=== PATIENT | female | born 1955 | race American Indian/Alaskan Native ===

== ENCOUNTER 2017-03-07 15:42 | Outpatient (CLI) | payer BC ==
--- NOTE | 2017-03-07 16:33 | Mammography Report ---
BILATERAL DIGITAL SCREENING MAMMOGRAM with CAD: 03/07/17 15:42:00 CLINICAL: Routine screening. COMPARISON:01/23/16 FINDINGS: The breasts are predominantly fatty with a few bilateral scattered fibroglandular densities. No mass, architectural distortion or suspicious calcifications. IMPRESSION: No mammographic evidence of malignancy. BI-RADS CATEGORY: 2 -- Benign RECOMMENDATION: Routine mammographic screening in one year. COMMENT: Patient follow-up letters are generated by our [employer] application.
== END 2017-03-07 15:43 | disposition home or self-care (01) ==
LOC: SPVWC 15:42
PROVIDERS: ATTEND Nurse Practitioner
DX: Z12.31 Encounter for screening mammogram for malignant neoplasm of breast (principal)
CPT/HCPCS: 77067; G0202

== ENCOUNTER 2019-02-19 13:42 | Outpatient (CLI) | payer OTHER ==
--- NOTE | 2019-02-19 15:40 | Mammography Report ---
BILATERAL DIGITAL SCREENING MAMMOGRAM with CAD: 02/19/19 13:42:00 CLINICAL: Routine screening. COMPARISON:03/07/17 and 01/23/16 FINDINGS: The breasts are mostly fatty with a few bilateral scattered areas of fibroglandular density. No mass, architectural distortion or suspicious calcifications. IMPRESSION: No mammographic evidence of malignancy. BI-RADS CATEGORY: 2 -- Benign RECOMMENDATION: Routine mammographic screening in one year. COMMENT: Patient follow-up letters are generated by our [employer] application.
== END 2019-02-19 13:43 | disposition home or self-care (01) ==
LOC: SPVWC 13:42
PROVIDERS: ATTEND Internal Medicine
DX: Z12.31 Encounter for screening mammogram for malignant neoplasm of breast (principal)
CPT/HCPCS: 77067